=== PATIENT | female | born 1990 | race Caucasian/White ===

== ENCOUNTER 2022-12-30 20:23 | Emergency (ER) | payer MEDICAID ==
[~2022-12-30] VITALS: Ht 165.1 cm; Wt 62.0 kg
[2022-12-30 21:24] VITALS: BP 106/36
[2022-12-30] MEDS ORDERED: LIDOCAINE 1% 10 ML VIAL SQ ONE (22:30)
== END 2022-12-30 23:17 | disposition still patient (30) ==
LOC: EMS 20:23
DX: S61.511A Laceration without foreign body of right wrist, initial encounter (principal); X58.XXXA Exposure to other specified factors, initial encounter; Y93.89 Activity, other specified; Y92.89 Other specified places as the place of occurrence of the external cause; Y99.8 Other external cause status
CPT/HCPCS: 99282; 12004; J3490